=== PATIENT | female | born 1965 | race African-American/Black ===

== ENCOUNTER 2016-09-17 12:41 | Inpatient (IN) | payer MEDICAID ==
[~2016-09-17] VITALS: Ht 167.6 cm; Wt 100.8 kg
[~2016-09-17 12:41] MED LIST: AMLO5TAB2 PO; CYCL-181 PO; GABA-494 PO; GLIP-116 PO; LISI-646 PO; METO-158 PO; SIMV-8 PO
[2016-09-17] MEDS ORDERED: SODIUM CHLORIDE 0.9% 1,000 ML IVB ONE (12:52)
[2016-09-17] MEDS ORDERED: ONDANSETRON HCL 4 MG/2 ML VIAL IV ONE (13:00)
[2016-09-17] MEDS ORDERED: MORPHINE SULFATE 4 MG/ML SYRG IV ONE (13:00)
[2016-09-17 13:09] LABS: Basophils # (auto) 0.1 uL; Basophils % (auto) 0.5 % (0.0-2.0); Eosinophils # (auto) 0 uL; Eosinophils % (auto) 0.1 % (0.0-7.0); Hematocrit 45.9 % (36.0-46.0); Hemoglobin 14.9 g/dL (12.2-16.2); Lymphocytes % (auto) 15.4 % (10.0-50.0); Mean Corpuscular Hemoglobin 28.1 pg (28.0-32.0); Mean Corpuscular Hgb Conc. 32.5 g/dL (32.0-36.0); Mean Corpuscular Volume 86.4 fL (80.0-100.0); Mean Platelet Volume 7.9 fL (7.4-10.4); Monocytes # (auto) 0.7 uL; Monocytes % (auto) 5.7 % (0.0-12.0); Neutrophils # (auto) 10.4 uL; Neutrophils % (auto) 78.3 % (37.0-80.0); Platelet Count (auto) 525 10^3/uL (140-450); Red Cell Distribution Width 13.6 % (11.6-16.0); White Blood Cell 13.3 10^3/uL (4.4-10.8)
[2016-09-17 13:44] LABS: Albumin 3.6 g/dL (3.4-5.0); BUN/Creatinine Ratio 20.6; Bilirubin, Total 0.5 mg/dL (0.2-1.0); Calcium 9.8 mg/dL (8.5-10.1); Potassium 3.8 mmol/L (3.5-5.1); Total Protein 8.6 g/dL (6.4-8.2)
[2016-09-17] MEDS ORDERED: InsuLIN REG 1unit/0.01ml Soln (100units/ml) IV ONE (14:30)
[2016-09-17] MEDS ORDERED: PANTOPRAZOLE SODIUM 40 MG/10 ML VIAL IV ONE (15:15)
[2016-09-17] MEDS ORDERED: ACETAMINOPHEN 500 MG TAB PO PRN (15:15)
[2016-09-17] MEDS ORDERED: LORazepam 0.5 MG TAB PO PRN (15:15)
[2016-09-17] MEDS ORDERED: HYDROcodone-ACET 5/325MG TAB PO PRN (15:15)
[2016-09-17] MEDS ORDERED: DEXTROSE (50%) 50ML SYRG IV PRN (15:15)
[2016-09-17] MEDS ORDERED: TEMAZEPAM 15 MG CAP PO PRN (15:15)
[2016-09-17] MEDS ORDERED: PROMETHAZINE HCL 25 MG/ML 1ML IV PRN (15:15)
[2016-09-17] MEDS ORDERED: NITROGLYCERIN 0.4 MG SL TAB SL PRN (15:15)
[2016-09-17] MEDS ORDERED: MORPHINE SULF INJ 2 MG/ML SYRINGE 1ML IV PRN ×2 (15:15)
[2016-09-17] MEDS: SODIUM CHLORIDE 0.9% 1,000 ML IV SCH (16:14)
[2016-09-17] MEDS: cefTRIAXone 1GM/50ML D5W 50 ML IV SCH (16:14)
[2016-09-17] MEDS: ENOXAPARIN SOD 40 MG/0.4 ML SYRINGE SC SCH (16:14)
[2016-09-17] MEDS: ACCU-CHEK COMFORT CURVE STRIP VI SCH ×3 (16:14→23:52)
[2016-09-17] MEDS: InsuLIN REG 1unit/0.01ml Soln (100units/ml) SC SCH ×3 (16:15→23:52)
[2016-09-17 16:27] LABS: Urine Bilirubin Negative (Negative); Urine Blood 1+ /uL (Negative); Urine Color Yellow (Yellow); Urine Glucose 4+ mg/dL (Normal); Urine Ketone 2+ (Negative); Urine Nitrite Negative (Negative); Urine RBC 2 /hpf (0 - 4); Urine Squamous Epithelial Cell MOD /hpf (<5); Urine Urobilinogen Normal (Negative)
[2016-09-17] MEDS: metroNIDAZOLE 500MG/100ML 100 ML IV SCH ×2 (17:22→23:52)
[2016-09-17 22:00] VITALS: BP 190/109
[2016-09-17] MEDS: cloNIDine HCL 0.1 MG TAB PO PRN (22:28)
[2016-09-18 01:11] VITALS: BP 195/101
[2016-09-18] MEDS: ACCU-CHEK COMFORT CURVE STRIP VI SCH ×6 (03:48→23:50)
[2016-09-18] MEDS: InsuLIN REG 1unit/0.01ml Soln (100units/ml) SC SCH ×6 (03:51→23:57)
[2016-09-18 05:30] VITALS: BP 149/89
[2016-09-18 06:31] LABS: Basophils # (auto) 0.1 uL; Basophils % (auto) 0.7 % (0.0-2.0); Eosinophils # (auto) 0.1 uL; Eosinophils % (auto) 0.9 % (0.0-7.0); Hematocrit 47.2 % (36.0-46.0); Hemoglobin 15.2 g/dL (12.2-16.2); Lymphocytes # (auto) 2.5 uL; Mean Corpuscular Hemoglobin 28.1 pg (28.0-32.0); Mean Corpuscular Hgb Conc. 32.2 g/dL (32.0-36.0); Mean Corpuscular Volume 87.2 fL (80.0-100.0); Mean Platelet Volume 8.4 fL (7.4-10.4); Monocytes # (auto) 1.2 uL; Monocytes % (auto) 9.3 % (0.0-12.0); Neutrophils # (auto) 8.5 uL; Neutrophils % (auto) 69.1 % (37.0-80.0); Platelet Count (auto) 459 10^3/uL (140-450); Red Cell Distribution Width 13.3 % (11.6-16.0); White Blood Cell 12.3 10^3/uL (4.4-10.8)
[2016-09-18 06:58] LABS: Potassium 3.2 mmol/L (3.5-5.1)
[2016-09-18 07:04] LABS: Albumin 3.3 g/dL (3.4-5.0); BUN/Creatinine Ratio 23.8; Calcium 9.4 mg/dL (8.5-10.1)
[2016-09-18 07:13] LABS: Bilirubin, Total 0.5 mg/dL (0.2-1.0); Total Protein 8.2 g/dL (6.4-8.2)
[2016-09-18] MEDS: cloNIDine HCL 0.1 MG TAB PO PRN (07:46)
[2016-09-18] MEDS: metroNIDAZOLE 500MG/100ML 100 ML IV SCH ×3 (07:53→23:50)
[2016-09-18] MEDS: SODIUM CHLORIDE 0.9% 1,000 ML IV SCH ×2 (07:53→11:26)
[2016-09-18 08:10] VITALS: BP 197/96
[2016-09-18] MEDS: cefTRIAXone 1GM/50ML D5W 50 ML IV SCH (08:58)
[2016-09-18] MEDS: PANTOPRAZOLE 40 MG TAB PO SCH (10:46)
[2016-09-18 13:25] VITALS: BP 158/74
[2016-09-18] MEDS: ENOXAPARIN SOD 40 MG/0.4 ML SYRINGE SC SCH (16:00)
[2016-09-18 17:18] VITALS: BP 179/93
[2016-09-18] MEDS: METOCLOPRAMIDE HCL 5MG/ml INJ 2ml VIAL IV SCH ×2 (18:50→23:50)
[2016-09-18 21:38] VITALS: BP 126/68
[2016-09-19] MEDS: ACCU-CHEK COMFORT CURVE STRIP VI SCH ×5 (04:09→20:00)
[2016-09-19] MEDS: InsuLIN REG 1unit/0.01ml Soln (100units/ml) SC SCH ×5 (04:09→20:00)
[2016-09-19 04:37] VITALS: BP 162/95
[2016-09-19] MEDS: METOCLOPRAMIDE HCL 5MG/ml INJ 2ml VIAL IV SCH ×3 (05:59→18:00)
[2016-09-19] MEDS: cloNIDine HCL 0.1 MG TAB PO PRN ×2 (05:59→13:09)
[2016-09-19] MEDS: metroNIDAZOLE 500MG/100ML 100 ML IV SCH (08:11)
[2016-09-19 08:22] VITALS: BP 133/82
[2016-09-19] MEDS: PANTOPRAZOLE 40 MG TAB PO SCH (09:57)
[2016-09-19] MEDS ORDERED: POTASSIUM CHL 20 Meq TABLET PO ONE (10:15)
[2016-09-19] MEDS ORDERED: SUCR1TAB38 PO (10:20)
[2016-09-19] MEDS ORDERED: OMEP20TA PO (10:20)
[2016-09-19 12:18] VITALS: BP 133/82
[2016-09-19 13:31] VITALS: BP 195/111
[2016-09-19] MEDS ORDERED: GASTROGRAFIN 120 ML SOL ONE (14:30)
[2016-09-19] MEDS: ENOXAPARIN SOD 40 MG/0.4 ML SYRINGE SC SCH (16:00)
[2016-09-19 16:57] VITALS: BP 150/94
[2016-09-19 22:00] VITALS: BP 188/90
[2016-09-20] MEDS: ACCU-CHEK COMFORT CURVE STRIP VI SCH ×4 (04:00→12:05)
[2016-09-20 05:00] VITALS: BP 164/107
[2016-09-20] MEDS: InsuLIN REG 1unit/0.01ml Soln (100units/ml) SC SCH ×4 (05:00→12:10)
[2016-09-20] MEDS: metroNIDAZOLE 500MG/100ML 100 ML IV SCH ×2 (05:21→08:47)
[2016-09-20] MEDS: METOCLOPRAMIDE HCL 5MG/ml INJ 2ml VIAL IV SCH ×3 (06:26→12:00)
[2016-09-20] MEDS: PANTOPRAZOLE 40 MG TAB PO SCH (08:47)
[2016-09-20 08:56] VITALS: BP 145/99
[2016-09-20] MEDS: cloNIDine HCL 0.1 MG TAB PO PRN (12:17)
== END 2016-09-20 13:26 | disposition home or self-care (01) | DRG 243 ==
LOC: EDBD 12:41 → ER 12:41 → TELE 12:42 → TELE-WESTW 21:05 → WEST WING 09-20 04:36
PROVIDERS: ADMIT Internal Medicine; ATTEND Hospitalist
DX: K21.9 Gastro-esophageal reflux disease without esophagitis (principal); E11.42 Type 2 diabetes mellitus with diabetic polyneuropathy; E87.8 Other disorders of electrolyte and fluid balance, not elsewhere classified; K52.9 Noninfective gastroenteritis and colitis, unspecified; E11.65 Type 2 diabetes mellitus with hyperglycemia; E87.1 Hypo-osmolality and hyponatremia; E66.01 Morbid (severe) obesity due to excess calories; E78.5 Hyperlipidemia, unspecified; M10.9 Gout, unspecified; Z68.35 Body mass index [BMI] 35.0-35.9, adult; E86.0 Dehydration; F12.90 Cannabis use, unspecified, uncomplicated; I10 Essential (primary) hypertension; K29.70 Gastritis, unspecified, without bleeding; Z86.73 Personal history of transient ischemic attack (TIA), and cerebral infarction without residual deficits; Z87.891 Personal history of nicotine dependence; Z98.51 Tubal ligation status; Z86.79 Personal history of other diseases of the circulatory system; Z83.2 Family history of diseases of the blood and blood-forming organs and certain disorders involving the immune mechanism; D47.3 Essential (hemorrhagic) thrombocythemia; D72.829 Elevated white blood cell count, unspecified; K29.50 Unspecified chronic gastritis without bleeding
CPT/HCPCS: 36415; 71010; 74176; 74250; 80053; 80061; 81001; 82010; 82150; 82962; 83036; 83690; 85025; 85652; 86141; 87086; 87493; 94761; 96361; 96374; 96375; 96376; C9113; J0696; J1815; J2405; J3490

== ENCOUNTER 2017-07-07 12:47 | Inpatient (IN) | payer MEDICAID ==
[~2017-07-07] VITALS: Ht 167.6 cm; Wt 98.2 kg
[~2017-07-07 12:47] MED LIST changes: -GABA-494 PO; +GABA100C9 PO; +OMEP20TA PO; +SUCR1TAB38 PO
[2017-07-08 00:04] LABS: Basophils # (auto) 0.1 uL; Basophils % (auto) 1.2 % (0.0-2.0); Eosinophils # (auto) 0.2 uL; Eosinophils % (auto) 1.6 % (0.0-7.0); Hematocrit 47.8 % (36.0-46.0); Hemoglobin 15.8 g/dL (12.2-16.2); Lymphocytes # (auto) 2.6 uL; Lymphocytes % (auto) 23.7 % (10.0-50.0); Mean Corpuscular Hemoglobin 28.6 pg (28.0-32.0); Mean Corpuscular Hgb Conc. 33.1 g/dL (32.0-36.0); Mean Corpuscular Volume 86.3 fL (80.0-100.0); Monocytes # (auto) 1.2 uL; Monocytes % (auto) 10.4 % (0.0-12.0); Neutrophils % (auto) 63.1 % (37.0-80.0); Nucleated Red Blood Cells % 0.1 %; Platelet Count (auto) 476 10^3/uL (140-450); Red Blood Cells 5.54 10^6/uL (4.0-5.20); Red Cell Distribution Width 13.3 % (11.8-14.3); White Blood Cell 11.1 10^3/uL (4.4-10.8)
[2017-07-08 00:15] LABS: Albumin 3.5 g/dL (3.4-5.0); BUN/Creatinine Ratio 20.2; Calcium 9.9 mg/dL (8.5-10.1); Potassium 4.2 mmol/L (3.5-5.1)
[2017-07-08 00:18] LABS: Bilirubin, Total 0.4 mg/dL (0.2-1.0); Total Protein 8.9 g/dL (6.4-8.2)
[2017-07-08] MEDS ORDERED: SODIUM CHLORIDE 0.9% 1,000 ML IV ONE (07:40)
[2017-07-08] MEDS ORDERED: CLINDAMYCIN 600MG IV 50 ML IV ONE (07:45)
[2017-07-08] MEDS ORDERED: SODIUM CHLORIDE 0.9% 1,000 ML IV SCH (09:14)
[2017-07-08] MEDS ORDERED: VANCOMYCIN PER PHARMACY 0 MG IV SCH (09:15)
[2017-07-08] MEDS ORDERED: DEXTROSE (50%) 50ML SYRG IV PRN (09:15)
[2017-07-08] MEDS ORDERED: VANCOMYCIN 1GM/250ML 250 ML IV ONE (09:15)
[2017-07-08] MEDS ORDERED: GABAPENTIN 100 MG CAP PO SCH (10:00)
[2017-07-08] MEDS: LISINOPRIL 20 MG TAB PO SCH (11:09)
[2017-07-08] MEDS: METOPROLOL TARTRATE 50 MG TAB PO SCH (11:09)
[2017-07-08] MEDS: amLODIPine BESYLATE 5 MG TAB PO SCH (11:09)
[2017-07-08] MEDS: ENOXAPARIN SOD 30 MG/0.3 ML SYRINGE SC SCH (11:10)
[2017-07-08] MEDS: VANCOMYCIN 1,500 MG in D5W 5% 250 ML IV SCH (11:10)
[2017-07-08] MEDS: ACCU-CHEK COMFORT CURVE STRIP VI SCH ×2 (12:24→18:15)
[2017-07-08] MEDS: InsuLIN REG 1unit/0.01ml Soln (100units/ml) SC SCH ×2 (12:33→18:30)
[2017-07-08 13:49] VITALS: BP 113/51
[2017-07-08] MEDS: SODIUM CHLORIDE 0.9% 1,000 ML IV SCH (13:56)
[2017-07-08] MEDS: GABAPENTIN 400 MG CAP PO SCH ×2 (13:57→22:39)
[2017-07-08] MEDS: CLINDAMYCIN 300MG IV 50 ML IV SCH ×2 (13:57→22:00)
[2017-07-08] MEDS ORDERED: GEMF600T3 PO (16:01)
[2017-07-08] MEDS ORDERED: GABA100C9 PO (16:01)
[2017-07-08] MEDS ORDERED: INSLANTI SC (16:04)
[2017-07-08 16:53] VITALS: BP 153/76
[2017-07-08] MEDS: OXYCODONE W/ ACETAMINOPHEN 5/325MG TABLET PO PRN (18:52)
[2017-07-08 21:52] VITALS: BP 157/75
[2017-07-08] MEDS ORDERED: METOPROLOL TARTRATE 50 MG TAB ONE (22:27)
[2017-07-08] MEDS: ATORVASTATIN 20 MG TAB PO SCH (22:39)
[2017-07-09] MEDS: InsuLIN REG 1unit/0.01ml Soln (100units/ml) SC SCH ×4 (00:29→18:01)
[2017-07-09] MEDS: ACCU-CHEK COMFORT CURVE STRIP VI SCH ×4 (00:29→18:01)
[2017-07-09] MEDS: SODIUM CHLORIDE 0.9% 1,000 ML IV SCH ×2 (03:20→18:01)
[2017-07-09 05:36] VITALS: BP 133/88
[2017-07-09 06:11] LABS: Mean Corpuscular Hemoglobin 28.6 pg (28.0-32.0); Neutrophils # (auto) 4.9 uL; White Blood Cell 8.2 10^3/uL (4.4-10.8)
[2017-07-09 06:13] LABS: Basophils # (auto) 0.1 uL; Basophils % (auto) 1.1 % (0.0-2.0); Eosinophils # (auto) 0.1 uL; Eosinophils % (auto) 1.8 % (0.0-7.0); Hematocrit 45.2 % (36.0-46.0); Hemoglobin 14.9 g/dL (12.2-16.2); Lymphocytes % (auto) 24.7 % (10.0-50.0); Mean Corpuscular Volume 86.7 fL (80.0-100.0); Monocytes % (auto) 12.4 % (0.0-12.0); Nucleated Red Blood Cells % 0.1 %; Platelet Count (auto) 447 10^3/uL (140-450); Red Blood Cells 5.21 10^6/uL (4.0-5.20); Red Cell Distribution Width 13.4 % (11.8-14.3)
[2017-07-09 06:31] LABS: Potassium 4.6 mmol/L (3.5-5.1)
[2017-07-09 06:35] LABS: Albumin 2.9 g/dL (3.4-5.0); BUN/Creatinine Ratio 22.5; Calcium 9.5 mg/dL (8.5-10.1)
[2017-07-09] MEDS: GABAPENTIN 400 MG CAP PO SCH ×3 (06:43→21:52)
[2017-07-09] MEDS: CLINDAMYCIN 300MG IV 50 ML IV SCH ×3 (06:43→21:51)
[2017-07-09 06:45] LABS: Bilirubin, Total 0.3 mg/dL (0.2-1.0); Total Protein 7.7 g/dL (6.4-8.2)
[2017-07-09 09:00] VITALS: BP 162/94
[2017-07-09] MEDS: OXYCODONE W/ ACETAMINOPHEN 5/325MG TABLET PO PRN ×3 (10:39→21:53)
[2017-07-09] MEDS: VANCOMYCIN 1,500 MG in D5W 5% 250 ML IV SCH (10:39)
[2017-07-09] MEDS: amLODIPine BESYLATE 5 MG TAB PO SCH (10:40)
[2017-07-09] MEDS: ENOXAPARIN SOD 30 MG/0.3 ML SYRINGE SC SCH (10:40)
[2017-07-09] MEDS: METOPROLOL TARTRATE 50 MG TAB PO SCH (10:41)
[2017-07-09] MEDS: LISINOPRIL 20 MG TAB PO SCH ×2 (10:41→21:53)
[2017-07-09 12:51] LABS: Urine Bacteria FEW /hpf (None Seen); Urine Blood TRACE /uL (Negative); Urine Mucus FEW (None Seen); Urine Specific Gravity 1.023 (1.001-1.035); Urine WBC 20 /hpf (0 - 5)
[2017-07-09 13:00] VITALS: BP 161/88
[2017-07-09] MEDS: cloNIDine HCL 0.1 MG TAB PO PRN (14:09)
[2017-07-09 17:00] VITALS: BP 118/70
[2017-07-09] MEDS: ATORVASTATIN 20 MG TAB PO SCH (21:52)
[2017-07-09] MEDS: INSULIN DETEMIR(LEVEMIR) 1unit/0.01ml Soln (100units/ml) SC SCH (21:53)
[2017-07-09 22:00] VITALS: BP 130/82
[2017-07-10] MEDS: InsuLIN REG 1unit/0.01ml Soln (100units/ml) SC SCH ×5 (00:28→21:49)
[2017-07-10] MEDS: ACCU-CHEK COMFORT CURVE STRIP VI SCH ×5 (00:28→21:49)
[2017-07-10 05:23] VITALS: BP 152/71
[2017-07-10] MEDS: CLINDAMYCIN 300MG IV 50 ML IV SCH (05:54)
[2017-07-10] MEDS: SODIUM CHLORIDE 0.9% 1,000 ML IV SCH ×2 (05:54→19:20)
[2017-07-10] MEDS: GABAPENTIN 400 MG CAP PO SCH ×3 (05:54→21:47)
[2017-07-10] MEDS: cloNIDine HCL 0.1 MG TAB PO PRN ×2 (05:56→16:50)
[2017-07-10] MEDS: OXYCODONE W/ ACETAMINOPHEN 5/325MG TABLET PO PRN ×3 (05:57→22:04)
[2017-07-10 07:00] LABS: Albumin 2.9 g/dL (3.4-5.0); BUN/Creatinine Ratio 23.7; Bilirubin, Total 0.4 mg/dL (0.2-1.0); Calcium 9.1 mg/dL (8.5-10.1); Potassium 4.3 mmol/L (3.5-5.1); Total Protein 7.6 g/dL (6.4-8.2)
[2017-07-10] MEDS ORDERED: PERCOT PO (07:38)
[2017-07-10 08:28] VITALS: BP 153/80
[2017-07-10] MEDS: LISINOPRIL 20 MG TAB PO SCH ×2 (10:19→21:48)
[2017-07-10] MEDS: amLODIPine BESYLATE 5 MG TAB PO SCH (10:19)
[2017-07-10] MEDS: ENOXAPARIN SOD 30 MG/0.3 ML SYRINGE SC SCH (10:21)
[2017-07-10] MEDS: METOPROLOL TARTRATE 50 MG TAB PO SCH (10:21)
[2017-07-10] MEDS: VANCOMYCIN 1,500 MG in D5W 5% 250 ML IV SCH (10:25)
[2017-07-10] MEDS: INSULIN DETEMIR(LEVEMIR) 1unit/0.01ml Soln (100units/ml) SC SCH ×2 (10:25→21:49)
[2017-07-10 12:21] VITALS: BP 120/74
[2017-07-10] MEDS: cefTRIAXone 1GM/10ml IVPUSH 10 ML IV SCH ×2 (14:19→21:47)
[2017-07-10 17:04] VITALS: BP_SYST 134; BP_SYST 155; BP_DIAS 81; BP_DIAS 86
[2017-07-10 20:00] VITALS: BP 146/87
[2017-07-10] MEDS: ATORVASTATIN 20 MG TAB PO SCH (21:48)
[2017-07-10 22:19] VITALS: BP 146/87
[2017-07-11] MEDS: OXYCODONE W/ ACETAMINOPHEN 5/325MG TABLET PO PRN ×4 (04:51→23:51)
[2017-07-11 05:22] VITALS: BP 135/79
[2017-07-11] MEDS: GABAPENTIN 400 MG CAP PO SCH ×3 (05:49→21:29)
[2017-07-11] MEDS: ACCU-CHEK COMFORT CURVE STRIP VI SCH ×4 (05:49→23:06)
[2017-07-11] MEDS: InsuLIN REG 1unit/0.01ml Soln (100units/ml) SC SCH ×4 (06:02→23:06)
[2017-07-11 06:10] LABS: Albumin 2.9 g/dL (3.4-5.0); BUN/Creatinine Ratio 26.1; Bilirubin, Total 0.2 mg/dL (0.2-1.0); Calcium 8.7 mg/dL (8.5-10.1); Potassium 4.3 mmol/L (3.5-5.1); Total Protein 7.5 g/dL (6.4-8.2)
[2017-07-11 08:36] VITALS: BP 163/81
[2017-07-11] MEDS: SODIUM CHLORIDE 0.9% 1,000 ML IV SCH ×2 (09:20→21:28)
[2017-07-11] MEDS: cefTRIAXone 1GM/10ml IVPUSH 10 ML IV SCH ×2 (09:34→21:28)
[2017-07-11] MEDS: ENOXAPARIN SOD 30 MG/0.3 ML SYRINGE SC SCH (09:35)
[2017-07-11] MEDS: LISINOPRIL 20 MG TAB PO SCH ×2 (09:35→21:34)
[2017-07-11] MEDS: METOPROLOL TARTRATE 50 MG TAB PO SCH (09:36)
[2017-07-11] MEDS: amLODIPine BESYLATE 5 MG TAB PO SCH (09:37)
[2017-07-11] MEDS: INSULIN DETEMIR(LEVEMIR) 1unit/0.01ml Soln (100units/ml) SC SCH ×2 (09:37→23:06)
[2017-07-11] MEDS: VANCOMYCIN 1,500 MG in D5W 5% 250 ML IV SCH (11:48)
[2017-07-11 12:38] VITALS: BP 131/72
[2017-07-11 17:09] VITALS: BP 157/88
[2017-07-11] MEDS: cloNIDine HCL 0.1 MG TAB PO PRN (17:48)
[2017-07-11] MEDS: ATORVASTATIN 20 MG TAB PO SCH (21:28)
[2017-07-11 22:00] VITALS: BP_SYST 112; BP_SYST 164; BP_DIAS 68; BP_DIAS 78
[2017-07-12] VITALS (7 sets, daily range): BP systolic 146–159; BP diastolic 70–85
[2017-07-12] MEDS: OXYCODONE W/ ACETAMINOPHEN 5/325MG TABLET PO PRN ×4 (05:58→23:56)
[2017-07-12] MEDS: GABAPENTIN 400 MG CAP PO SCH ×3 (05:58→22:28)
[2017-07-12] MEDS: InsuLIN REG 1unit/0.01ml Soln (100units/ml) SC SCH ×4 (05:58→23:58)
[2017-07-12] MEDS: ACCU-CHEK COMFORT CURVE STRIP VI SCH ×4 (05:58→23:58)
[2017-07-12 07:36] LABS: Albumin 2.8 g/dL (3.4-5.0); BUN/Creatinine Ratio 23.5; Bilirubin, Total 0.2 mg/dL (0.2-1.0); Potassium 4.1 mmol/L (3.5-5.1); Total Protein 7.3 g/dL (6.4-8.2)
[2017-07-12] MEDS ORDERED: VANCOMYCIN 1GM/250ML 250 ML IV SCH (08:00)
[2017-07-12] MEDS: LISINOPRIL 20 MG TAB PO SCH ×2 (09:11→22:28)
[2017-07-12] MEDS: amLODIPine BESYLATE 5 MG TAB PO SCH (09:11)
[2017-07-12] MEDS: METOPROLOL TARTRATE 50 MG TAB PO SCH (09:12)
[2017-07-12] MEDS: ENOXAPARIN SOD 30 MG/0.3 ML SYRINGE SC SCH (09:13)
[2017-07-12] MEDS: INSULIN DETEMIR(LEVEMIR) 1unit/0.01ml Soln (100units/ml) SC SCH ×2 (09:13→22:29)
[2017-07-12] MEDS: cefTRIAXone 1GM/10ml IVPUSH 10 ML IV SCH ×2 (09:14→22:24)
[2017-07-12] MEDS: SODIUM CHLORIDE 0.9% 1,000 ML IV SCH ×2 (12:07→23:59)
[2017-07-12] MEDS: VANCOMYCIN 1,250 MG in D5W 5% 250 ML IV SCH (20:06)
[2017-07-12] MEDS: ATORVASTATIN 20 MG TAB PO SCH (22:27)
[2017-07-12] MEDS: cloNIDine HCL 0.1 MG TAB PO PRN (23:58)
[2017-07-13] MEDS ORDERED: METOPROLOL TARTRATE 25 MG TAB PO ONE (02:15)
[2017-07-13] MEDS ORDERED: METOPROLOL TARTRATE 25 MG TAB ONE (02:18)
[2017-07-13 05:16] VITALS: BP 161/84
[2017-07-13] MEDS: ACCU-CHEK COMFORT CURVE STRIP VI SCH ×3 (06:08→17:28)
[2017-07-13] MEDS: GABAPENTIN 400 MG CAP PO SCH ×3 (06:14→21:37)
[2017-07-13] MEDS: cloNIDine HCL 0.1 MG TAB PO PRN (06:15)
[2017-07-13] MEDS: OXYCODONE W/ ACETAMINOPHEN 5/325MG TABLET PO PRN ×4 (06:16→23:56)
[2017-07-13 06:34] LABS: Basophils # (auto) 0.1 uL; Basophils % (auto) 1.2 % (0.0-2.0); Eosinophils # (auto) 0.2 uL; Eosinophils % (auto) 2.1 % (0.0-7.0); Hematocrit 43.3 % (36.0-46.0); Hemoglobin 14.2 g/dL (12.2-16.2); Lymphocytes # (auto) 1.9 uL; Lymphocytes % (auto) 25.5 % (10.0-50.0); Mean Corpuscular Hemoglobin 28.3 pg (28.0-32.0); Mean Corpuscular Hgb Conc. 32.9 g/dL (32.0-36.0); Mean Corpuscular Volume 86.1 fL (80.0-100.0); Monocytes # (auto) 0.9 uL; Monocytes % (auto) 12.4 % (0.0-12.0); Neutrophils # (auto) 4.5 uL; Neutrophils % (auto) 58.8 % (37.0-80.0); Nucleated Red Blood Cells % 0.1 %; Platelet Count (auto) 400 10^3/uL (140-450); Red Blood Cells 5.03 10^6/uL (4.0-5.20); White Blood Cell 7.6 10^3/uL (4.4-10.8)
[2017-07-13 06:47] LABS: INR 1.03 (0.9-1.15); Partial Thromboplastin Time 33.3 sec (22.64-33.71); Prothrombin Time 11.2 sec (9.37-12.3)
[2017-07-13 06:56] LABS: Albumin 2.7 g/dL (3.4-5.0); BUN/Creatinine Ratio 28.4; Bilirubin, Total 0.3 mg/dL (0.2-1.0); Calcium 8.7 mg/dL (8.5-10.1); Potassium 4.1 mmol/L (3.5-5.1); Total Protein 7.2 g/dL (6.4-8.2)
[2017-07-13] MEDS: InsuLIN REG 1unit/0.01ml Soln (100units/ml) SC SCH ×3 (07:35→17:28)
[2017-07-13 08:00] VITALS: BP 145/82
[2017-07-13] MEDS: VANCOMYCIN 1,250 MG in D5W 5% 250 ML IV SCH (09:22)
[2017-07-13] MEDS: cefTRIAXone 1GM/10ml IVPUSH 10 ML IV SCH ×2 (10:00→21:00)
[2017-07-13] MEDS: METOPROLOL TARTRATE 50 MG TAB PO SCH (10:53)
[2017-07-13] MEDS: ENOXAPARIN SOD 30 MG/0.3 ML SYRINGE SC SCH (10:53)
[2017-07-13] MEDS: LISINOPRIL 20 MG TAB PO SCH ×2 (10:54→21:50)
[2017-07-13] MEDS: amLODIPine BESYLATE 5 MG TAB PO SCH (10:54)
[2017-07-13] MEDS: INSULIN DETEMIR(LEVEMIR) 1unit/0.01ml Soln (100units/ml) SC SCH ×2 (11:05→21:38)
[2017-07-13 12:00] VITALS: BP 147/78
[2017-07-13] MEDS: SODIUM CHLORIDE 0.9% 1,000 ML IV SCH (15:40)
[2017-07-13 17:20] VITALS: BP 146/80
[2017-07-13] MEDS: ATORVASTATIN 20 MG TAB PO SCH (21:36)
[2017-07-13 22:55] VITALS: BP 140/66
[2017-07-14] MEDS: ACCU-CHEK COMFORT CURVE STRIP VI SCH ×4 (00:04→18:06)
[2017-07-14] MEDS: InsuLIN REG 1unit/0.01ml Soln (100units/ml) SC SCH ×4 (00:04→18:07)
[2017-07-14] MEDS: SODIUM CHLORIDE 0.9% 1,000 ML IV SCH ×2 (03:20→16:40)
[2017-07-14] MEDS: GABAPENTIN 400 MG CAP PO SCH ×3 (06:06→22:17)
[2017-07-14] MEDS: OXYCODONE W/ ACETAMINOPHEN 5/325MG TABLET PO PRN ×2 (06:07→12:31)
[2017-07-14 06:22] VITALS: BP 125/75
[2017-07-14 07:54] VITALS: BP 147/69
[2017-07-14] MEDS ORDERED: VANCOMYCIN 1,500 MG in D5W 5% 250 ML IV SCH (08:00)
[2017-07-14] MEDS: cefTRIAXone 1GM/10ml IVPUSH 10 ML IV SCH ×2 (09:04→22:17)
[2017-07-14] MEDS: ENOXAPARIN SOD 30 MG/0.3 ML SYRINGE SC SCH (10:32)
[2017-07-14] MEDS: amLODIPine BESYLATE 5 MG TAB PO SCH (10:33)
[2017-07-14] MEDS: METOPROLOL TARTRATE 50 MG TAB PO SCH (10:34)
[2017-07-14] MEDS: LISINOPRIL 20 MG TAB PO SCH ×2 (10:34→22:16)
[2017-07-14] MEDS: INSULIN DETEMIR(LEVEMIR) 1unit/0.01ml Soln (100units/ml) SC SCH ×2 (10:42→22:16)
[2017-07-14 11:43] VITALS: BP 156/88
[2017-07-14] MEDS ORDERED: ASP81EC PO (14:28)
[2017-07-14] MEDS ORDERED: SIMV-8 PO (14:28)
[2017-07-14] MEDS ORDERED: LIDOCAINE 1% HCL (LOCAL ANESTH.) INJ 20ML MDV ID ONE (15:15)
[2017-07-14 16:05] VITALS: BP 144/73
[2017-07-14 16:24] VITALS: BP 144/73
[2017-07-14 22:00] VITALS: BP 167/63
[2017-07-14] MEDS: SODIUM CHLOR 0.9% PF (SALINE LOCK) 10ML VIAL IV SCH (22:17)
[2017-07-14] MEDS: ATORVASTATIN 20 MG TAB PO SCH (22:17)
[2017-07-15] MEDS: InsuLIN REG 1unit/0.01ml Soln (100units/ml) SC SCH ×3 (00:15→14:11)
[2017-07-15] MEDS: ACCU-CHEK COMFORT CURVE STRIP VI SCH ×3 (00:15→12:01)
[2017-07-15] MEDS: OXYCODONE W/ ACETAMINOPHEN 5/325MG TABLET PO PRN ×3 (00:16→14:09)
[2017-07-15 06:00] VITALS: BP 152/91
[2017-07-15] MEDS: SODIUM CHLORIDE 0.9% 1,000 ML IV SCH (06:00)
[2017-07-15] MEDS: GABAPENTIN 400 MG CAP PO SCH ×2 (06:48→14:11)
[2017-07-15] MEDS ORDERED: VANCOMYCIN 1,500 MG in SODIUM CHL 0.9% 250 ML IV SCH (08:00)
[2017-07-15] MEDS: cefTRIAXone 1GM/10ml IVPUSH 10 ML IV SCH (08:11)
[2017-07-15 09:00] VITALS: BP 178/93
[2017-07-15] MEDS: METOPROLOL TARTRATE 50 MG TAB PO SCH (11:53)
[2017-07-15] MEDS: SODIUM CHLOR 0.9% PF (SALINE LOCK) 10ML VIAL IV SCH (11:54)
[2017-07-15] MEDS: amLODIPine BESYLATE 5 MG TAB PO SCH (11:54)
[2017-07-15] MEDS: LISINOPRIL 20 MG TAB PO SCH (11:55)
[2017-07-15] MEDS: ENOXAPARIN SOD 30 MG/0.3 ML SYRINGE SC SCH (11:55)
[2017-07-15] MEDS: INSULIN DETEMIR(LEVEMIR) 1unit/0.01ml Soln (100units/ml) SC SCH (12:01)
[2017-07-15 13:00] VITALS: BP 178/93
[2017-07-15] MEDS ORDERED: PERCOT PO (13:39)
[2017-07-15 14:15] VITALS: BP 178/93
== END 2017-07-15 16:10 | disposition home health service (06) | DRG 197 ==
LOC: ER 12:47 → OVERFLOW 12:48 → CENTRAL 07-08 15:04
PROVIDERS: ADMIT Family Medicine; ATTEND Hospitalist
PROC: 02HV33Z Insertion of Infusion Device into Superior Vena Cava, Percutaneous Approach (ICD-10-PCS; principal; 2017-07-14)
DX: E11.52 Type 2 diabetes mellitus with diabetic peripheral angiopathy with gangrene (principal); N17.9 Acute kidney failure, unspecified; E11.40 Type 2 diabetes mellitus with diabetic neuropathy, unspecified; I11.9 Hypertensive heart disease without heart failure; E11.621 Type 2 diabetes mellitus with foot ulcer; E11.65 Type 2 diabetes mellitus with hyperglycemia; E78.00 Pure hypercholesterolemia, unspecified; L03.032 Cellulitis of left toe; L97.529 Non-pressure chronic ulcer of other part of left foot with unspecified severity; M10.9 Gout, unspecified; Z79.4 Long term (current) use of insulin; Z86.73 Personal history of transient ischemic attack (TIA), and cerebral infarction without residual deficits; Z87.891 Personal history of nicotine dependence; Z98.51 Tubal ligation status; Z79.899 Other long term (current) drug therapy
CPT/HCPCS: 36415; 36569; 71045; 73630; 73718; 78315; 80053; 80202; 81001; 81025; 82962; 83036; 85025; 85610; 85652; 85730; 87077; 87186; 87205; 93926; 94761; 96365; J1815; J3490; J7060